=== PATIENT | female | born 2000 | race Caucasian/White ===

== ENCOUNTER 2021-03-14 15:06 | Emergency (ER) | payer MEDICAID ==
[~2021-03-14] VITALS: Ht 162.6 cm; Wt 81.6 kg
[2021-03-14 15:12] VITALS: BP_SYST 133
[2021-03-14] MEDS ORDERED: BACITRACIN 1 GM OINT TP ONE ×2 (16:30→17:08)
[2021-03-14] MEDS ORDERED: LIDOCAINE 4% TOPICAL 50 ML BOTTLE MM ONE (16:30)
[2021-03-14 17:08] VITALS: BP_SYST 117
== END 2021-03-14 17:15 | disposition home or self-care (01) ==
LOC: SED 15:06
DX: S01.01XA Laceration without foreign body of scalp, initial encounter (principal); S09.90XA Unspecified injury of head, initial encounter; W10.9XXA Fall (on) (from) unspecified stairs and steps, initial encounter; Y93.89 Activity, other specified; Y92.89 Other specified places as the place of occurrence of the external cause; Y99.8 Other external cause status
CPT/HCPCS: 81025; 99282

== ENCOUNTER 2021-03-21 19:49 | Emergency (ER) | payer MEDICAID ==
[~2021-03-21] VITALS: Ht 162.6 cm; Wt 75.3 kg
[2021-03-21 19:55] VITALS: BP_SYST 126
--- NOTE | 2021-03-21 20:00 | NUR ---
Patient to ER chair 1 for evaluation. Side rails up.
--- NOTE | 2021-03-21 20:01 | NUR ---
Pt came into ER for staple removal from back of head.
--- NOTE | 2021-03-21 20:01 | NUR ---
ER at bedside examining patient.
--- NOTE | 2021-03-21 20:02 | NUR ---
Dr. Marroquin removed 1 staple from back of the head. Edges approximated.
[2021-03-21 20:08] VITALS: BP_SYST 126
--- NOTE | 2021-03-21 20:09 | NUR ---
Patient given written and verbal discharge instructions and verbalizes understanding. ER MD discussed with patient the results and treatment provided. Patient in stable condition. ID arm band removed. Patient educated on pain management and to follow up with PMD. Pain Scale 0/10. Opportunity for questions provided and answered. Medication side effect fact sheet provided.
== END 2021-03-21 20:09 | disposition home or self-care (01) ==
LOC: SED 19:49
DX: S01.01XD Laceration without foreign body of scalp, subsequent encounter (principal); Z48.02 Encounter for removal of sutures; X58.XXXD Exposure to other specified factors, subsequent encounter
CPT/HCPCS: 99281

== ENCOUNTER 2021-09-09 17:53 | Emergency (ER) | payer MEDICAID ==
[~2021-09-09] VITALS: Ht 162.6 cm; Wt 68.9 kg
--- NOTE | 2021-09-09 17:55 | NUR ---
Patient triaged and placed in waiting room. VSS and patient appears in no acute distress at this time. Accompanied by family member, awaiting available bed, and MD notified of need for MSE.
--- NOTE | 2021-09-09 18:00 | NUR ---
Pt brought by self, A&Ox4, pt presents to ER with L ankle pain/swelling after slip and fall yesterday, normal pedal pulses, skin pink and warm, cap refill <3.
[2021-09-09 18:16] VITALS: BP_SYST 135
--- NOTE | 2021-09-09 22:35 | NUR ---
Dr Singh evaluating patient at bedside
[2021-09-09] MEDS ORDERED: IBUPROFEN 600 MG TABLET PO ONE (22:45)
[2021-09-09 22:55] VITALS: BP_SYST 135
--- NOTE | 2021-09-09 22:56 | NUR ---
Patient given written and verbal discharge instructions and verbalizes understanding. ER MD discussed with patient the results and treatment provided. Patient in stable condition. ID arm band removed. No Rx given. Patient educated on pain management and to follow up with PMD. Pain Scale 2/10 . Opportunity for questions provided and answered. Medication side effect fact sheet provided.
== END 2021-09-09 22:56 | disposition home or self-care (01) ==
LOC: SED 17:53
DX: M25.572 Pain in left ankle and joints of left foot (principal)
CPT/HCPCS: 99283

== ENCOUNTER 2023-02-20 17:02 | Emergency (ER) | payer MEDICAID ==
[~2023-02-20] VITALS: Ht 162.6 cm; Wt 86.2 kg
[2023-02-20 17:49] VITALS: BP_SYST 119; PULSE 89; RESP 18; TEMP 99; O2SAT 97
[2023-02-20 19:41] VITALS: BP_SYST 119; PULSE 89; RESP 18; TEMP 99; O2SAT 97
== END 2023-02-20 19:39 | disposition home or self-care (01) ==
LOC: SED 17:02
DX: S93.401A Sprain of unspecified ligament of right ankle, initial encounter (principal); Z79.899 Other long term (current) drug therapy; W19.XXXA Unspecified fall, initial encounter; Y93.89 Activity, other specified; Y92.89 Other specified places as the place of occurrence of the external cause; Y99.8 Other external cause status
CPT/HCPCS: 99283